=== PATIENT | female | born 1975 | race Caucasian/White ===

== ENCOUNTER 2022-07-26 13:23 | Emergency (ER) | payer BC, OTHER ==
--- OUTSIDE RECORDS SUMMARY | 2022-07-26 13:26 | XMS REPORT | Continuity of Care Document ---
:1975 Author Organization [facility] t Address [address] [place] [address] Care Team Providers Name Role Phone Kit CASTRO, Shirley Parry Primary Care Physician [phone] Dorina Jimenez Attending Clinician DORINA MARTINEZ Attending Clinician Unavailable Doctor Unassigned, [place] Attending Clinician Unavailable Koby Boles MD Attending Clinician Lab, Ang - Db Attending Clinician Unavailable KOBY BOLES Attending Clinician Unavailable BRANDT CANTU Attending Clinician Unavailable SHIRLEY GARCIA Attending Clinician Unavailable Brandt Hidalgo Attending Clinician LAB90 Attending Clinician Unavailable Payers Payer Name Policy Type Policy Number Effective Date Expiration Date S fox [facility] 2 [id number] 2018 [employer] 00:00:00 Problems Condition Condition Condition Status Onset Resolution Last Treating Co mments Source Name Details Category Date Date Treatment Clinician Date Hypothyroi Hypothyroi Disease Active 2020-09 K elsey dism dism 1-15 Seybold 00:00: 00 Hypothyroi Hypothyroi Disease Active 2018-09 U nivers dism, dism, 0-08 ity [place] 00 Medical Branch Allergies, Adverse Reactions, Alerts Allergy Allergy Status Severity Reaction(s) Onset Inactive Treating Comm ents Source Name Type Date Date Clinician NO KNOWN Drug Active Univers ALLERGIE Class ity of S [place] [facility] Social History Social Habit Start Date Stop Date Quantity Comments Source Exposure to 2022-07-11 2022-07-21 Not sure [facility]-CoV-2 00:00:00 06:37:00 [place] Medical (event) Branch Tobacco use and 2022-07-21 2022-07-21 Smokeless tobacco Un iversity of exposure 00:00:00 00:00:00 non-user [facility] Alcohol intake 2021-08-02 2021-08-02 Current drinker Davi Heck 00:00:00 00:00:00 of alcohol (finding) Sex [birth year] Genoveva meyers 00:00:00 00:00:00 Smoking Status Start Date Stop Date Source [facility] Never [facility] tobacco [facility] Medications Ordered Filled Start Stop Current Ordering Indication Dosage Frequency Signature Comments Components Source Medication Medication Date Date Medication? Clinician (SIG) Name Name levothyroxi 2021-09 Yes [id number] 88ug Take 1 Univers ne 88 mcg 0-24 tablet by ity o f tablet 00:00: mouth [place] 00 every Medical morning. Branch levothyroxi 2021-09 Yes [id number] 88ug Take 1 Univers ne 88 mcg 0-24 tablet by ity o f tablet 00:00: mouth [place] 00 every Medical morning. Branch levothyroxi 2021-09 Yes [id number] 88ug Take 1 Univers ne 88 mcg 0-24 tablet by ity o f tablet 00:00: mouth [place] 00 every Medical morning. Branch levothyroxi 2021-09 Yes [id number] 88ug Take 1 Univers ne 88 mcg 0-24 tablet by ity o f tablet 00:00: mouth [place] 00 every Medical morning. Branch FLUoxetine 2021-09 Yes 10mg Take 10 mg U nivers 10 mg 0-12 by mouth ity of capsule 00:00: in the [place] 00 morning. Medical Branch FLUoxetine 2021-09 Yes 10mg Take 10 mg U nivers 10 mg 0-12 by mouth ity of capsule 00:00: in the [place] 00 morning. Medical Branch ergocalcife Yes [id number] Take 1 Univers rol, 6-28 capsule by ity of vitamin d2, 00:00: mouth [place] (VITAMIN 00 weekly. Medical D2) 1,250 Branch mcg (50,000 unit) capsule ergocalcife 2022-0 Yes [id number] Take 1 Univers rol, 6-28 capsule by ity of vitamin d2, 00:00: mouth [place] (VITAMIN 00 weekly. Medical D2) 1,250 Branch mcg (50,000 unit) capsule ergocalcife 2022-0 Yes [id number] Take 1 Univers rol, 6-28 capsule by ity of vitamin d2, 00:00: mouth [place] (VITAMIN 00 weekly. Medical D2) 1,250 Branch mcg (50,000 unit) capsule ergocalcife 2022-0 Yes [id number] Take 1 Univers rol, 6-28 capsule by ity of vitamin d2, 00:00: mouth [place] (VITAMIN 00 weekly. Medical D2) 1,250 Branch mcg (50,000 unit) capsule ergocalcife 2022-0 Yes [id number] Take 1 Univers rol, 6-28 capsule by ity of vitamin d2, 00:00: mouth [place] (VITAMIN 00 weekly. Medical D2) 1,250 Branch mcg (50,000 unit) capsule ergocalcife 2022-0 Yes [id number] Take 1 Univers rol, 6-28 capsule by ity of vitamin d2, 00:00: mouth [place] (VITAMIN 00 weekly. Medical D2) 1,250 Branch mcg (50,000 unit) capsule ergocalcife 2022-0 Yes [id number] Take 1 Univers rol, 6-28 capsule by ity of vitamin d2, 00:00: mouth [place] (VITAMIN 00 weekly. Medical D2) 1,250 Branch mcg (50,000 unit) capsule ergocalcife 2022-0 Yes [id number] Take 1 Univers rol, 6-28 capsule by ity of vitamin d2, 00:00: mouth [place] (VITAMIN 00 weekly. Medical D2) 1,250 Branch mcg (50,000 unit) capsule ergocalcife 2022-0 Yes [id number] Take 1 Univers rol, 6-28 capsule by ity of vitamin d2, 00:00: mouth [place] (VITAMIN 00 weekly. Medical D2) 1,250 Branch mcg (50,000 unit) capsule ergocalcife 2022-0 Yes [id number] Take 1 Univers rol, 6-28 capsule by ity of vitamin d2, 00:00: mouth [place] (VITAMIN 00 weekly. Medical D2) 1,250 Branch mcg (50,000 unit) capsule Levothyroxi 2020-09 Yes 88ug Take 88 Blaise sey ne Sodium 1-15 mcg by Seybold 88 MCG oral 08:29: mouth Tablet 50 daily levothyroxi 2018-09 Yes [id number] 88ug Take 1 Univers ne 88 mcg 0-09 tablet by ity o f tablet 00:00: mouth [place] 00 every Medical morning. Avery levothyroxi 2018-09 Yes [id number] 88ug Take 1 Univers ne 88 mcg 0-09 tablet by ity o f tablet 00:00: mouth [place] 00 every Medical morning. [place] levothyroxi 2018-09 Yes [id number] 88ug Take 1 Univers ne 88 mcg 0-09 tablet by ity o f tablet 00:00: mouth [place] 00 every Medical morning. [place] levothyroxi 2018-09 Yes [id number] 88ug Take 1 Univers ne 88 mcg 0-09 tablet by ity o f tablet 00:00: mouth [place] 00 every Medical morning. [place] levothyroxi 2018-09 Yes [id number] 88ug Take 1 Univers ne 88 mcg 0-09 tablet by ity o f tablet 00:00: mouth [place] 00 every Medical morning. [place] levothyroxi 2018-09 Yes [id number] 88ug Take 1 Univers ne 88 mcg 0-09 tablet by ity o f tablet 00:00: mouth [place] 00 every Medical morning. [place] levothyroxi 2018-09- No [id number] 88ug Take 1 Univers ne 88 mcg 0-09 10-24 tablet by ity of tablet 00:00: 00:00 mouth [place] 00 :00 every Medical morning. Avery amoxicillin 2018-09- No [id number] 875mg Take 1 Univers 875 mg 0-08 06-27 tablet by ity of tablet 00:00: 00:00 mouth 2 [place] 00 :00 (two) Medical times Branch daily. citalopram 2018-09- No [id number] 20mg Take 1 Univers 20 mg 0-08 06-27 tablet by ity of tablet 00:00: 00:00 mouth [place] 00 :00 daily. Medical Branch Immunizations Ordered Filled Immunization Date Status Comments [facility] e Immunization Name Name SARS-COV-2 COVID-19 2021-07-28 Completed Unive rsity of PFIZER VACCINE 00:00:00 [facility] SARS-COV-2 COVID-19 2021-07-28 Completed Unive rsity of PFIZER VACCINE 00:00:00 [facility] SARS-COV-2 COVID-19 2021-07-19 Completed Unive rsity of PFIZER VACCINE 00:00:00 [facility] SARS-COV-2 COVID-19 2021-07-19 Completed Unive rsity of PFIZER VACCINE 00:00:00 [facility] Vital Signs Vital Name Observation Time Observation Value Comments Source Systolic blood 2022-07-21 14:20:00 138 mm[Hg] Univer sity of pressure [facility] Diastolic blood 2022-07-21 14:20:00 80 mm[Hg] Unive rsity of [facility] Heart rate 2022-07-21 13:53:00 71 /min Universi ty [facility] Body height 2022-07-21 13:53:00 167.6 cm Universi ty [facility] Body weight 2022-07-21 13:53:00 77.565 kg Universi ty [facility] BMI 2022-07-21 13:53:00 27.60 kg/m2 Universi ty [facility] Oxygen saturation 2022-07-21 13:53:00 100 /min Uni versity of in Arterial blood [facility] by Pulse oximetry Branch Systolic blood 2022-03-14 15:02:00 141 mm[Hg] notified Univer sity of [facility] Diastolic blood 2022-03-14 15:02:00 101 mm[Hg] notified Unive rsity of pressure [facility] Heart rate 2022-03-14 14:54:00 68 /min Universi ty [facility] Body height 2022-03-14 14:54:00 167.6 cm Universi ty [facility] Body weight 2022-03-14 14:54:00 85.004 kg Universi ty [facility] BMI 2022-03-14 14:54:00 30.25 kg/m2 Universi ty [facility] Oxygen saturation 2022-03-14 14:54:00 99 /min Uni versity of in Arterial blood [facility] by Pulse oximetry Branch Systolic blood 2021-08-02 23:28:00 134 mm[Hg] Genoveva Garciaybold pressure Diastolic blood 2021-08-02 23:28:00 82 mm[Hg] Davi lopez Seybold pressure Heart rate 2021-08-02 23:28:00 72 /min Genoveva mendiola Body height 2021-08-02 23:28:00 167.6 cm Genoveva mendiola Body weight 2021-08-02 23:28:00 74.844 kg Genoveva mendiola BMI 2021-08-02 23:28:00 26.63 kg/m2 Genoveva mendiola Procedures Procedure Date / Time Performing Clinician Source Performed AUTHORIZATION FOR 2022-05-25 05:01:00 [facility] Branch AUTHORIZATION FOR 2022-05-10 05:01:00 Doctor Unassigned, [facility] RE[facility] OF PHI Name [facility] Branch CBC WITH DIFF 2022-03-14 15:53:00 Boles, [facility] kimberlee [facility] AUTHORIZATION FOR 2022-03-14 05:01:00 Doctor Unassigned, No Univ ersity [facility] RELEASE OF PHI Name [facility] Encounters Start End Encounter Admission Attending Care Care Encounter Source Date/Time Date/Time Type Type Clinicians Facility Department ID 2022-07-21 2022-07-21 Office Michelle [facility] [id number] [id number] Univers 09:00:00 09:30:00 Visit Dorina Medina [facility] 350.1.13.10 i ty of [place] 4.2.7.2.686 Estuardo as ERIC?BLEA [id number] Co dical ROSITA [address] [place] [address] MEDICAL OFFICE BUILDING 2022-07-21 2022-07-21 Outpatient R MICHELLE [facility] [id number] Univers 09:00:00 09:00:00 DORINA de la rosa [facility] 2022-07-11 2022-07-11 Refill Doctor [facility] 1.2.840.114 [id number] Univers 00:00:00 00:00:00 Unassigned, [facility] 350.1.13.10 ity of [place] 4.2.7.2.686 Estuardo as ERIC?BLEA [id number] Co dicdorothea CHAPPELL 044 [facility] OFFICE [facility] 2022-07-11 2022-07-11 Refill Doctor OKYURY 1.2.840.114 [id number] Univers 00:00:00 00:00:00 Unassigned, HEALTH 350.1.13.10 ity of [place] [facility] 4.2.7.2.686 Estuardo as ERIC?BLEA [phone] [facility] [address] [facility] 2022-07-11 2022-07-11 Patient Boles [facility] 1.2.840.114 [id number] Univers 00:00:00 00:00:00 Secure Msg Koby [facility] 350.1.13.10 ity of [place].2.[place] [id number] [facility] [address] [facility] 2022-05-25 2022-05-25 Orders Doctor CHARLIE 1.2.840.114 [id number] Univers 00:00:00 00:00:00 Only Unassigned, TIEN 350.1.13.10 ity of [place] [facility] 4.2.7.2.686 Estuardo as [id number] [address] 2022-05-19 2022-05-19 Telephone Ramana [facility] [id number] Univers 00:00:00 00:00:00 Koby HEALTH 350.1.13.10 it y [facility] 4.2.7.2.686 Estuardo as ERIC?BLEA [phone] [address] 2022-05-10 2022-05-10 Orders Doctor CHARLIE 1.2.840.114 [id number] Univers 00:00:00 00:00:00 Only Unassigned, TIEN 350.1.13.10 ity of [place] [facility] 4.2.7.2.686 Estuardo as [id number] [address] 2022-03-14 2022-03-14 Torch [facility], Ang - Joseph [facility] 1.2.840.1 14 [id number] Univers 10:30:00 10:45:00 Visit Koby Boles [facility] 350.1.13.10 ity [facility] 4.2.7.2.686 Estuardo as ERIC?BLEA [phone] Co vero BECKER [address] MEDICAL OFFICE [facility] 2022-03-14 2022-03-14 [facility] 1.2.840.114 [id number] Univers 10:00:00 10:24:41 Visit [facility] 350.1.13.10 it y of [place] 4.2.7.2.686 Estuardo as ERIC?BLEA [id number] Co vero [address] MEDICAL OFFICE [facility] 2022-03-14 2022-03-14 Outpatient Laure BOLES [facility] [id number] Univers 10:00:00 10:24:41 [facility] 2022-03-14 2022-03-14 Outpatient R RAMANA [facility] [id number] Univers 10:00:00 10:24:41 [facility] 2022-03-14 2022-03-14 Outpatient Laure BOLES [facility] [id number] Univers 10:00:00 10:00:00 [facility] 2022-03-14 2022-03-14 Orders Doctor CHARLIE 1.2.840.114 [id number] Univers 00:00:00 00:00:00 Only Unassigned, TI[facility] 350.1.13.10 [facility] 4.2.7.2.686 Estuardo as [id number] [address] 2022-03-12 2022-03-12 Outpatient GENOVEVA CANTU [id number] Genoveva 00:00:00 00:00:00 BRANDT Herronol jolie 2021-11-01 2021-11-01 Outpatient GENOVEVA GARCIA [id number] Genoveva 00:00:00 00:00:00 SHIRLEY dave 2021-08-03 2021-08-03 Outpatient GENOVEVA CANTU [id number] Genoveva 00:00:00 00:00:00 BRANDT Garciaybol jolie 2021-08-03 2021-08-03 Outpatient GENOVEVA CANTU [id number] Genoveva 00:00:00 00:00:00 BRANDT Garciaybol d 2021-08-02 2021-08-02 Office Des Cantu 1.2.840.114 [id number] Genoveva 08:23:23 08:53:23 Visit Brandt [place] 350.1.13.13 Se mira 1.2.7.2.686 [id number] 2021-08-02 2021-08-02 Outpatient LAB90 GENOVEVA GENOVEVA [id number] Genoveva 08:50:00 08:50:00 Seybol d 2020-07-16 2020-07-16 [facility] 1.2.840.114 [id number] Univers 00:00:00 00:00:00 [facility] 350.1.13.10 it y of [place] 4.2.7.2.686 Estuardo as Professio [phone] Co dical [address] Office [facility] 2020-03-12 2020-03-12 Outpatient R [facility] [id number] Univers 16:00:00 16:00:00 ity [facility] Results Test Description Test Time Test Comments Results Result Comments Source CBC WITH DIFF 2022-03-14 19:05:20 Test Item Value Reference Range Interpretation Comme nts WBC (test code = 6690-2) See_Comment [A utomated message] The system which generated this result transmitted ref erence range: 4.30 - 11.10 10*3/?L . The reference range was not u sed to interpret this result as normal/abnormal. RBC (test code = 789-8) See_Comment [Au tomated message] The system which generated this result transmitted ref erence range: 3.93 - 5.25 10*6/?L. The reference range was not u sed to interpret this result as normal/abnormal. HGB (test code = 718-7) 13.8 g/dL 11.6-15.0 HCT (test code = 4544-3) 42.8 % 35.7-45.2 MCV (test code = 787-2) 90.5 fL 80.6-95.5 MCH (test code = 785-6) 29.2 pg 25.9-32.8 MCHC (test code = 786-4) 32.2 g/dL 31.6-35.1 RDW-SD (test code = 44.0 fL 39.0-49.9 33370-0) RDW-CV (test code = 13.2 % 12.0-15.5 788-0) PLT (test code = 777-3) See_Comment [Au tomated message] The system which generated this result transmitted ref erence range: 166 - 358 10*3/?L. The reference range was not u sed to interpret this result as normal/abnormal. MPV (test code = 05884-2) 10.8 fL 9.5-12.9 NRBC/100 WBC (test code = See_Comment [ Automated message] The system [id number]) which generated this result transmitted ref erence range: 0.0 - 10.0 /100 WBC s. The reference range was not u sed to interpret this result as normal/abnormal. NRBC x10^3 (test code = <0.01 See_Comment [Au tomated message] The system [id number]) which generated this result transmitted ref erence range: 10*3/?L. The re ference range was not used to int erpret this result as normal/abnor mal. GRAN MAT (NEUT) % (test 49.9 % code = 770-8) IMM GRAN % (test code = 0.20 % [id number]) LYMPH % (test code = 39.2 % 736-9) MONO % (test code = 6.9 % 5905-5) EOS % (test code = 713-8) 3.1 % BASO % (test code = 0.7 % 706-2) GRAN MAT x10^3(ANC) (test 2.74 10*3/uL 1.88-7.09 code = 7602332141) IMM GRAN x10^3 (test code <0.03 0.00-0.06 = [id number]) LYMPH x10^3 (test code = 2.15 10*3/uL 1.32-3.29 731-0) MONO x10^3 (test code = 0.38 10*3/uL 0.33-0.92 742-7) EOS x10^3 (test code = 0.17 10*3/uL 0.03-0.39 711-2) BASO x10^3 (test code = 0.04 10*3/uL 0.01-0.07 704-7) [facility]
--- NOTE | 2022-07-26 14:33 | RAD REPORT ---
EXAM DESCRIPTION: RAD - Ankle Right 3 View - 07/26/2022 2:24 pm CLINICAL HISTORY: PAIN COMPARISON: No comparisons FINDINGS: Moderate soft tissue swelling is seen adjacent to the lateral malleolus. No acute fracture evident. Large plantar and small posterior calcaneal spur.
--- NOTE | 2022-07-26 14:42 | EDPHYS ---
Physician Documentation [facility] Name: Evelin Le Age: 47 yrs Sex: Female : 1975 Arrival Date: 07/26/2022 Time: 13:26 Bed 11 Private MD: ED Physician Peter Chaparro HPI: 07/26 14:49 This 47 yrs old Female presents to ER via Ambulatory with complaints of Ankle Injury. kb 14:49 The patient presents with pain, swelling. The complaints affect the right ankle. Onset: kb The symptoms/episode began/occurred today. Context: The problem was sustained at work, resulted from twisting ankle, The patient can fully bear weight on the affected extremity. the patient is able to ambulate. Associated signs and symptoms: Pertinent positives: swelling, Pertinent negatives: calf tenderness, fever, nausea, numbness, rash, tingling, vomiting, warmth, weakness. Modifying factors: The symptoms are alleviated by nothing, the symptoms are aggravated by weight bearing, movement. Severity of symptoms: At their worst the symptoms were mild, moderate, in the emergency department the symptoms are unchanged. The patient has not experienced similar symptoms in the past. The patient has not recently seen a physician. Pt states she got up from her chair at work and twisted ankle after lunch. Historical: - Allergies: 14:00 No Known Allergies; iw - Home Meds: 14:02 levothyroxine 13 mcg cap 1 cap once daily [Active]; fluoxetine 20 mg/5 mL (4 mg/mL) iw Oral soln 5 mL once daily [Active]; - PMHx: 14:14 Hypothyroidism; iw - Social history:: Patient/guardian denies using alcohol, street drugs, IV drugs, The patient lives alone, . - Family history:: not pertinent. - Coronavirus screen:: The patient has NOT traveled to [place] in the past 14 days. Proceed with normal triage process as indicated. ROS: 14:47 Constitutional: Negative for fever, chills, and weight loss. kb 14:47 MS/extremity: Positive for pain, of the right ankle. 14:47 All other systems are negative. Exam: 14:47 Constitutional: This is a well developed, well nourished patient who is awake, alert, kb and in no acute distress. Head/Face: Normocephalic, atraumatic. ENT: Moist Mucous membranes Respiratory: Respirations even and unlabored. No increased work of breathing. Talking in full sentences Skin: Warm, dry with normal turgor. Normal color. Neuro: Awake and alert, GCS 15, oriented to person, place, time, and situation. Moves all extremities. Normal gait. Psych: Awake, alert, with orientation to person, place and time. Behavior, mood, and affect are within normal limits. 14:47 Musculoskeletal/extremity: Extremities: grossly normal except: noted in the right ankle: pain, swelling, tenderness, ROM: intact in all extremities, Circulation is intact in all extremities. Sensation intact. Weight bearing: able to fully bear weight. Vital Signs: 13:58 BP 145 / 87; Pulse 83; Resp 16; Temp 98.2; Pulse Ox 100% on R/A; Weight 75.75 kg; iw Height 5 ft. 6 in. (167.64 cm); Pain 7/10; 14:01 BP 145 / 87; Pulse 67; Resp 16; Temp 98.2; Pulse Ox 100% on R/A; Weight 75.75 kg; iw Height 5 ft. 6 in. (167.64 cm); Pain 7/10; 14:01 Body Mass Index 26.95 (75.75 kg, 167.64 cm) iw MDM: 13:59 Patient medically screened. kb 14:46 Data reviewed: vital signs, nurses notes. Data interpreted: Pulse oximetry: on room air kb is 100 %. Interpretation: normal. Counseling: I had a detailed discussion with the patient and/or guardian regarding: the historical points, exam findings, and any diagnostic results supporting the discharge/admit diagnosis, radiology results, the need for outpatient follow up, a orthopedic surgeon, to return to the emergency department if symptoms worsen or persist or if there are any questions or concerns that arise at home. 07/26 14:03 Order name: Ankle Right 3 View XRAY; Complete Time: 14:34 kb 07/26 14:03 Order name: Ice pack; Complete Time: 14:18 kb 07/26 14:41 Order name: Aircast Ankle Splint; Complete Time: 15:31 kb Administered Medications: No medications were administered Disposition: 17:33 Co-signature as Attending Physician, Peter Chaparro MD. rn Disposition Summary: 07/26/22 14:41 Discharge Ordered Location: Home kb Condition: Stable kb Diagnosis - Sprain of ankle kb Followup: kb - With: Emergency Department - When: As needed - Reason: Worsening of condition Followup: kb - With: Private Physician - When: 2 - 3 days - Reason: Recheck today's complaints, Continuance of care, Re-evaluation by your physician Discharge Instructions: - Discharge Summary Sheet kb - Ankle Sprain, [id number] kb Forms: - Medication Reconciliation Form kb - Thank You Letter kb - Antibiotic Education kb - Prescription Opioid Use kb - Work release form [id number] Prescriptions: - Diclofenac Sodium 75 mg Oral tablet,delayed release (DR/EC) - take 1 tablet by ORAL route 2 times per day As needed; 30 tablet; Refills: 0, kb Product Selection Permitted Signatures: Dispatcher [employer] Veronica Kirkpatrick FNP-C FNP-Riya Lee, RN RN iw Peter Chaparro MD MD varnish remover: (The following items were deleted from the chart) 14:15 14:14 PMHx: Hypertensive disorder; [facility]
--- NOTE | 2022-07-26 14:42 | ER ---
Nurse's Notes [facility] Name: Evelin Le Age: 47 yrs Sex: Female : 1975 Arrival Date: 07/26/2022 Time: 13:26 Bed 11 Private MD: Diagnosis: Sprain of ankle Presentation: 07/26 13:58 Chief complaint: Patient states: pt arrived ambulatory ,tripped over on two feet woke iw up in a panic. Coronavirus screen: Vaccine status: Patient reports receiving the 2nd dose of the covid vaccine. Ebola Screen: No symptoms or risks identified at this time. Initial Sepsis Screen: Does the patient meet any 2 criteria? No. Patient's initial sepsis screen is negative. Risk Assessment: Do you want to hurt yourself or someone else? Patient reports no desire to harm self or others. 13:58 Method Of Arrival: Ambulatory iw 13:58 Acuity: LANG 4 iw Triage Assessment: 14:00 General: Appears in no apparent distress. Behavior is calm, quiet. iw Historical: - Allergies: 14:00 No Known Allergies; iw - Home Meds: 14:02 levothyroxine 13 mcg cap 1 cap once daily [Active]; fluoxetine 20 mg/5 mL (4 mg/mL) iw Oral soln 5 mL once daily [Active]; - PMHx: 14:14 Hypothyroidism; iw - Social history:: Patient/guardian denies using alcohol, street drugs, IV drugs, The patient lives alone, . - Family history:: not pertinent. - Coronavirus screen:: The patient has NOT traveled to [place] in the past 14 days. Proceed with normal triage process as indicated. Vital Signs: 13:58 BP 145 / 87; Pulse 83; Resp 16; Temp 98.2; Pulse Ox 100% on R/A; Weight 75.75 kg; iw Height 5 ft. 6 in. (167.64 cm); Pain 7/10; 14:01 BP 145 / 87; Pulse 67; Resp 16; Temp 98.2; Pulse Ox 100% on R/A; Weight 75.75 kg; iw Height 5 ft. 6 in. (167.64 cm); Pain 7/10; 14:01 Body Mass Index 26.95 (75.75 kg, 167.64 cm) iw ED Course: 13:26 Patient arrived in ED. as 13:35 Veronica Madison FNP-C is PHCP. kb 13:35 Peter Chaparro MD is Attending Physician. kb 14:00 Triage completed. iw 14:18 Riya Edwards, RN is Primary Nurse. iw 14:26 Ankle Right 3 View XRAY In Process Unspecified. EDMS Administered Medications: No medications were administered Outcome: 14:41 Discharge ordered by MD. kb 15:47 Patient left the ED. [email or web address] Signatures: Dispatcher [employer] EDMS Veronica Madison FNP-C FNP-Ckb Martinez, Amelia as Riya Edwards, RN RN Genny Madison [email or web address] Corrections: (The following items were deleted from the chart) 14:15 14:14 PMHx: Hypertensive disorder; iw iw
[2022-07-26 16:53] VITALS: BP 145/87; TEMP 98.2; O2SAT 100
== END 2022-07-26 15:47 | disposition home or self-care (01) ==
LOC: ER 13:23
DX: S93.401A Sprain of unspecified ligament of right ankle, initial encounter (principal); X50.1XXA Overexertion from prolonged static or awkward postures, initial encounter; Y93.89 Activity, other specified; Y92.89 Other specified places as the place of occurrence of the external cause; Y99.0 Civilian activity done for income or pay
CPT/HCPCS: 99283